=== PATIENT | female | born 1940 | race Caucasian/White ===

== ENCOUNTER 2019-02-15 21:18 | Emergency (ER) | payer MEDICARE ==
--- NOTE | 2019-02-15 21:58 | ER Document Report ---
ED GI Bleed / Rectal Pain - General Chief Complaint: GI Bleeding Stated Complaint: WEAKNESS Time Seen by Provider: 02/15/19 21:56 Mode of Arrival: Stretcher Information source: Patient, Relative Notes: HISTORY OF PRESENT ILLNESS: Patient is a 78-year-old female with a past medical history of stroke status post PEG tube placement secondary to dysphagia who presents with dark black and coffee-ground emesis. Patient denies injury or abdominal pain. Denies taking blood thinners. Location: Abdomen Onset: Sudden Alleviation: None Provocation: None Quality: Bleeding Radiation: None Severity: Moderate Timing: Intermittent History of abdominal surgery: Yes, feeding tube placement Associated symptoms: Denies fevers or chills, no cough or congestion, no abdominal pain, no diarrhea Last bowel movement: Today and normal REVIEW OF SYSTEMS: CONSTITUTIONAL : Denies fever or chills, no sweats. Denies recent illness. EENT: Denies eye, ear, throat, or mouth pain or symptoms. Denies nasal or sinus congestion. CARDIOVASCULAR: Denies chest pain. Denies swelling of the legs. RESPIRATORY: Denies cough, cold, or chest congestion. Denies shortness of breath or difficulty breathing. Denies wheezing. GASTROINTESTINAL: Positive for dark black and coffee-ground emesis. Denies constipation. GENITOURINARY: Denies difficulty urinating, painful urination, burning, frequency, or blood in urine. FEMALE GENITOURINARY: Denies vaginal bleeding, abnormal or irregular periods. MUSCULOSKELETAL: Denies neck or back pain or joint pain or swelling. SKIN: Denies rash or skin lesions. HEMATOLOGIC : Denies easy bruising or bleeding. LYMPHATIC: Denies swollen, enlarged glands. NEUROLOGICAL: Denies altered mental status or loss of consciousness. Denies headache. Denies weakness or paralysis or loss of use of either side. Denies problems with gait or speech. Denies sensory or motor loss. PSYCHIATRIC: Denies anxiety or stress or depression. All other systems reviewed and negative. PHYSICAL EXAMINATION: GENERAL: Frail-appearing, well-nourished and in no acute distress. HEAD: Atraumatic, normocephalic. No scalp deformity, depression, or crepitance. EYES: Pupils are 3 mm and equal/round/reactive to light, extraocular movements intact, sclera anicteric, conjunctiva are normal. ENT: Nares patent bilaterally, oropharynx. Moist mucous membranes. No tonsil hypertrophy. NECK: Normal range of motion, supple without lymphadenopathy. LUNGS: Breath sounds present, equal, and clear to auscultation bilaterally. No wheezes, rales, or rhonchi. HEART: Regular rate and rhythm without murmurs, rubs, or gallops. 2+ peripheral pulses. Normal capillary refill. ABDOMEN: PEG tube placement in the left mid-abdomen, copious dark black contents within PEG tube, nontender abdomen. Normoactive bowel sounds. No guarding, no rebound. No masses appreciated. BACK: Normal contour, no midline tenderness. Rectal exam deferred. GENITAL/PELVIC: Deferred. EXTREMITIES: Normal range of motion, no pitting or edema. No cyanosis. NEUROLOGICAL: No focal neurological deficits. Moves all extremities spontaneously and on command. PSYCH: Normal mood, normal affect. No suicidal thoughts/ideations. No homicidal thoughts/ideations. No hallucinations. SKIN: Warm, dry, normal turgor, no rashes or lesions noted. ASSESSMENT AND PLAN: This patient is a 78-year-old female who presents with hematemesis and dark black contents in her PEG tube. 1. Will obtain labs, coagulation panel, and CT scan of the abdomen/pelvis. 2. Will consider transfusion depending on blood counts and likely admit to the hospital. TRAVEL OUTSIDE OF THE [place] IN LAST 30 DAYS: No - HPI Patient complains to provider of: Coffee ground emesis, Other - Dark black vomitus in G-tube Onset: This evening Timing/Duration: Sudden Quality of pain: No pain Severity of symptoms: Moderate Pain Level: Denies Emesis description: Coffee grounds, Other - Dark black Use of: denies: Warfarin, Plavix, ASA, Lovenox, Pradaxa, NSAIDS, ETOH Associated symptoms: None Exacerbated by: Denies Relieved by: Denies Similar symptoms previously: No Recently seen / treated by doctor: No - Related Data Allergies/Adverse Reactions: No Known Allergies Allergy (Unverified 02/15/19 21:41) Past Medical History - General Information source: Patient, Relative - Social History Smoking Status: Never Smoker Chew tobacco use (# tins/day): No Frequency of alcohol use: None Drug Abuse: None Lives with: Family Family History: Reviewed & Not Pertinent Patient has suicidal ideation: No Patient has homicidal ideation: No - Past Medical History Cardiac Medical History: Reports: None Pulmonary Medical History: Reports: None EENT Medical History: Reports: None Neurological Medical History: Reports: Hx Cerebrovascular Accident Endocrine Medical History: Reports: None Renal/ Medical History: Reports: None Malignancy Medical History: Reports: None GI Medical History: Reports: Other - History of PEG feeding tube Musculoskeletal Medical History: Reports None Skin Medical History: Reports None Psychiatric Medical History: Reports: None Traumatic Medical History: Reports: None Infectious Medical History: Reports: None Past Surgical History: Reports: Hx Abdominal Surgery - Immunizations Immunizations up to date: Yes Hx Diphtheria, Pertussis, Tetanus Vaccination: Yes Review of Systems - Review of Systems Constitutional: No symptoms reported EENT: No symptoms reported Cardiovascular: No symptoms reported Respiratory: No symptoms reported Gastrointestinal: See HPI, Nausea, Vomiting, Blood in vomit Genitourinary: No symptoms reported Female Genitourinary: No symptoms reported Musculoskeletal: No symptoms reported Skin: No symptoms reported Hematologic/Lymphatic: No symptoms reported Neurological/Psychological: No symptoms reported -: Yes All other systems reviewed and negative Physical Exam - Vital signs Vitals: Temp Pulse Resp BP Pulse Ox 99 F 68 18 155/55 H 95 02/15/19 21:41 02/15/19 21:41 02/15/19 21:41 02/15/19 21:41 02/15/19 21:41 Interpretation: Normal - General General appearance: Appears well, Alert - HEENT Head: Normocephalic, Atraumatic Eyes: Normal Pupils: PERRL - Respiratory Respiratory status: No respiratory distress Chest status: Nontender Breath sounds: Normal Chest palpation: Normal - Cardiovascular Rhythm: Regular Heart sounds: Normal auscultation Murmur: No - Abdominal Inspection: Normal Distension: No distension Bowel sounds: Normal Tenderness: Nontender Organomegaly: No organomegaly - Back Back: Normal, Nontender - Extremities General upper extremity: Normal inspection, Nontender, Normal color, Normal ROM, Normal temperature General lower extremity: Normal inspection, Nontender, Normal color, Normal ROM, Normal temperature, Normal weight bearing. No: Yang's sign - Neurological Neuro grossly intact: Yes Cognition: Normal Orientation: AAOx4 Evelin Coma Scale Eye Opening: Spontaneous Evelin Coma Scale Verbal: Oriented [place] Coma Scale Motor: Obeys Commands [place] Coma Scale Total: 15 Speech: Normal Motor strength normal: LUE, RUE, LLE, RLE Sensory: Normal - Psychological Associated symptoms: Normal affect, Normal mood - Skin Skin Temperature: Warm Skin Moisture: Dry Skin Color: Normal Course - Re-evaluation Re-evalutation: 02/16/19 03:32 CT scan is negative. Blood work is grossly unremarkable. Patient has been accepted in transfer to tertiary center given there is no gastroenterology available today. - Vital Signs Vital signs: Temp Pulse Resp BP Pulse Ox 99 F 68 15 114/51 L 95 02/15/19 21:41 02/15/19 21:41 02/16/19 03:01 02/16/19 03:01 02/16/19 03:01 - Laboratory Result Diagrams: 02/15/19 22:25 02/15/19 22:25 Laboratory results interpreted by me: 02/15/19 02/15/19 02/15/19 00:25 22:25 22:25 WBC 15.2 H RBC 3.26 L Hgb 9.4 L Hct 28.7 L RDW 14.2 H Lymph % (Auto) 12.7 L Absolute Neuts (auto) 12.2 H Seg Neutrophils % 80.6 H PT 21.4 H APTT 37.6 H BUN 76 H Creatinine 1.29 H Est GFR ( Amer) 49 L Est GFR (MDRD) Non-Af 40 L Glucose 245 H Total Protein 6.2 L Albumin 2.8 L Urine Protein Urine Glucose (UA) Ur Leukocyte Esterase Urine Ascorbic Acid 02/16/19 01:02 WBC RBC Hgb Hct RDW Lymph % (Auto) Absolute Neuts (auto) Seg Neutrophils % PT APTT BUN Creatinine Est GFR ( Amer) Est GFR (MDRD) Non-Af Glucose Total Protein Albumin Urine Protein 30 H Urine Glucose (UA) >=500 H Ur Leukocyte Esterase SMALL H Urine Ascorbic Acid 20 H - Diagnostic Test Radiology reviewed: Image reviewed, Reports reviewed - Consults Dr. Redmond ([facility]) Time consulted: 03:33 - will accept in transfer Discharge - Discharge Clinical Impression: GI bleed Qualifiers: GI bleed type/associated pathology: unspecified gastrointestinal hemorrhage type Qualified Code(s): K92.2 - Gastrointestinal hemorrhage, unspecified Condition: Stable Disposition: [facility]
[2019-02-15 22:58] LABS: ABSOLUTE EOSINOPHILS # (AUTO) 0.1 10^3/uL (0.0-0.6); ABSOLUTE LYMPHOCYTES (AUTO) 1.9 10^3/uL (0.5-4.7); ABSOLUTE MONOCYTES (AUTO) 0.9 10^3/uL (0.1-1.4); ABSOLUTE NEUT (AUTO) 12.2 10^3/uL (1.7-8.2); BASOPHILS % (AUTO) 0.3 % (0-2); EOSINOPHILS % (AUTO) 0.8 % (0-6); HEMATOCRIT 28.7 % (36.0-47.0); HEMOGLOBIN 9.4 g/dL (12.0-15.5); LYMPHOCYTES % (AUTO) 12.7 % (13-45); MEAN CORPUSCULAR HEMOGLOBIN 28.9 pg (27.0-33.4); MEAN CORPUSCULAR HGB CONC 32.8 g/dL (32.0-36.0); MEAN CORPUSCULAR VOLUME 88 fl (80-97); MONOCYTES % (AUTO) 5.6 % (3-13); PLATELET COUNT 272 10^3/uL (150-450); RED BLOOD COUNT 3.26 10^6/uL (3.72-5.28); RED CELL DISTRIBUTION WIDTH 14.2 % (11.5-14.0); SEGMENTED NEUTROPHILS % (AUTO) 80.6 % (42-78); TOTAL CELLS COUNTED % (AUTO) 100 %; WHITE BLOOD COUNT 15.2 10^3/uL (4.0-10.5)
[2019-02-15 23:04] LABS: INTERNATIONAL RATION (INR) 1.83; PARTIAL THROMBOPLASTIN TIME 37.6 SEC (23.5-35.8); PROTHROMBIN TIME 21.4 SEC (11.4-15.4)
[2019-02-16 01:08] LABS: ALBUMIN 2.8 g/dL (3.5-5.0); ALKALINE PHOSPHATASE 93 U/L (38-126); ANION GAP 9 (5-19); ASPARTATE AMINO TRANSFERASE 28 U/L (14-36); BILIRUBIN,DIRECT 0.2 mg/dL (0.0-0.4); BILIRUBIN,TOTAL 0.3 mg/dL (0.2-1.3); BLOOD UREA NITROGEN 76 mg/dL (7-20); CALCIUM 10.1 mg/dL (8.4-10.2); CARBON DIOXIDE 25 mmol/L (22-30); CHLORIDE 106 mmol/L (98-107); GLUCOSE 245 mg/dL (75-110); POTASSIUM 4.7 mmol/L (3.6-5.0); TOTAL PROTEIN 6.2 g/dL (6.3-8.2)
[2019-02-16 01:33] LABS: APPEARANCE,URINE SLIGHTLY-CLOUDY; BILIRUBIN,URINE NEGATIVE (NEGATIVE); COLOR,URINE YELLOW; GLUCOSE, URINE >=500 mg/dL (NEGATIVE); KETONES,URINE NEGATIVE (NEGATIVE); LEUKOCYTE ESTERASE,URINE SMALL (NEGATIVE); NITRITE,URINE NEGATIVE (NEGATIVE); PROTEIN,URINE 30 mg/dL (NEGATIVE); URINE SPECIFIC GRAVITY 1.017; UROBILINOGEN,URINE NEGATIVE mg/dL (<2.0)
--- NOTE | 2019-02-16 01:59 | RADIOLOGY REPORT (SQ) ---
CT ABDOMEN PELVIS WITH IV CONTRAST EXAM DATE: 02/16/2019 12:00 AM CDT HISTORY: Abdominal pain. COMPARISON: None. TECHNIQUE: CT scan of the abdomen and pelvis was performed with IV contrast. This exam was performed according to our departmental dose-optimization program, which includes automated exposure control, adjustment of the mA and/or kV according to patient size and/or use of iterative reconstruction technique. FINDINGS: The lung bases are clear. No pleural or pericardial effusions. There is a small hiatal hernia. There has been a prior cholecystectomy. Liver, spleen, pancreas, adrenal glands, and kidneys are unremarkable. No hydronephrosis. There has been a prior hysterectomy. A percutaneous gastrostomy tube terminates in the stomach. No small bowel obstruction. The appendix is normal. No evidence of acute diverticulitis. No intraperitoneal free fluid or free air is seen. The aorta is normal caliber and contains atherosclerotic calcifications. No acute bony findings are seen. Prior fixation of the left femur, partially visualized. IMPRESSION: 1. No acute abdominal or pelvic pathology. 2. Please note there is limited evaluation for gastrointestinal bleed due to oral contrast within the bowel lumen.
[2019-02-16] MEDS ORDERED: MORPHINE SULFATE 10 MG/ML INJ IV ONE (03:38)
[2019-02-16] MEDS ORDERED: NORMAL SALINE 1000 ML 1,000 ML IV ONE (07:29)
[2019-02-16 09:57] LABS: ABSOLUTE EOSINOPHILS # (AUTO) 0.1 10^3/uL (0.0-0.6); ABSOLUTE LYMPHOCYTES (AUTO) 1.9 10^3/uL (0.5-4.7); ABSOLUTE MONOCYTES (AUTO) 0.7 10^3/uL (0.1-1.4); BASOPHILS % (AUTO) 0.3 % (0-2); EOSINOPHILS % (AUTO) 1.2 % (0-6); HEMOGLOBIN 8.6 g/dL (12.0-15.5); LYMPHOCYTES % (AUTO) 16.3 % (13-45); MEAN CORPUSCULAR HEMOGLOBIN 29.2 pg (27.0-33.4); MEAN CORPUSCULAR HGB CONC 33.1 g/dL (32.0-36.0); MEAN CORPUSCULAR VOLUME 88 fl (80-97); MONOCYTES % (AUTO) 5.8 % (3-13); PLATELET COUNT 201 10^3/uL (150-450); RED BLOOD COUNT 2.94 10^6/uL (3.72-5.28); RED CELL DISTRIBUTION WIDTH 14.3 % (11.5-14.0); SEGMENTED NEUTROPHILS % (AUTO) 76.4 % (42-78); TOTAL CELLS COUNTED % (AUTO) 100 %; WHITE BLOOD COUNT 11.8 10^3/uL (4.0-10.5)
[2019-02-16] MEDS ORDERED: NORMAL SALINE 250 ML IV PRN (12:30)
[2019-02-16] MEDS ORDERED: PANTOPRAZOLE SODIUM 40 MG VIAL IV ONE (13:17)
--- NOTE | 2019-02-16 13:24 | ER Document Report ---
Doctor's Note Notes: 02/16/19 13:22 The patient was accepted for transfer by prior physician. The patient was signed out pending transfer. Unfortunately [facility] does not have a bed available till tomorrow. 1315 -I have called [facility] the next closest and they state that they will not have a bed for 24 to 36 hours also. We will try some other [facility] to see if we can get the patient there we will await her call back Patient's hemoglobin had dropped overnight I will give her a unit of blood here since she is actively bleeding. Family is unhappy about the way to be transferred. As today we have no GI on-call and surgery does not do scopes at this time with current on-call surgeon. 02/16/19 14:03 The patient does not want to go to [facility]. I have called more [facility] in [place] I spoke with Dr. Villanueva hospitalist they will accept the patient better and then in the same boat as [facility] they have limited bed availability. The son has been calling and screaming at the nurses. He is demanding that we give the patient her Eliquis and blood pressure medicine. The nurses have explained to him that by giving her the Eliquis we would worsen her GI bleed and cause harm and we will not do that. Also her blood pressure is lower and by g iving her her many blood pressure medicines will make her more hypotensive. The best thing is to give her fluids and blood and resuscitate her that weight and treat her underlying acute medical condition.
[2019-02-16] MEDS ORDERED: PANTOPRAZOLE SODIUM 40 MG VIAL IV PRN (14:12)
[2019-02-16 16:34] VITALS: BP 102/56
--- NOTE | 2019-02-16 20:55 | EKG REPORT ---
SEVERITY:- ABNORMAL ECG - ATRIAL FIBRILLATION LEFT AXIS DEVIATION LVH WITH SECONDARY REPOLARIZATION ABNORMALITY : Confirmed by: Ryann Naranjo MD 16-Feb-2019 20:53:58
== END 2019-02-16 16:25 | disposition short-term general hospital (02) ==
LOC: ER 21:18
DX: K92.2 Gastrointestinal hemorrhage, unspecified (principal); R53.1 Weakness; R11.2 Nausea with vomiting, unspecified
CPT/HCPCS: 93005; 86900; 86901; 36415; 36430; 86850; 82962; 85025; 85610; 85730; 80053; 81001; 84484; 86920; 83605; 74177; 93010; P9016; J2270; C9113; J7030; J7050; 96361; 96365; 96366; 96375; 96376; 99285; S0164